=== PATIENT | male | born 1940 | race Caucasian/White ===

== ENCOUNTER 2021-11-02 16:51 | Inpatient (IN) ==
[2021-11-02] MEDS ORDERED: Ondansetron 4 MG/2 ML VIAL IVP PRN (21:09)
[2021-11-02] MEDS ORDERED: Naloxone 0.4 MG/ML INJ IVP PRN (21:09)
[2021-11-02] MEDS ORDERED: Melatonin 3 MG TABLET PO PRN (21:09)
[2021-11-02] MEDS ORDERED: Acetaminophen 325 MG TABLET PO PRN (21:09)
[2021-11-02] MEDS ORDERED: *HR* LORazepam 2 MG/ML VIAL IVP PRN (21:37)
[2021-11-02] MEDS ORDERED: methylPREDNISolone 125 MG/2 ML VIAL IVP ONE (21:53)
[2021-11-02] MEDS: *HR* LORazepam 2 MG/ML VIAL IVP PRN (21:55)
[2021-11-02] MEDS ORDERED: Saline Nasal Spray 44 ML BOTTLE NS PRN (21:58)
[2021-11-02] MEDS ORDERED: Saliva Stimulant 44.3ml BOTTLE PO PRN (21:58)
[2021-11-02] MEDS: Ipratropium/Albuterol Neb 3 ML IH SCH (22:53)
[2021-11-02] MEDS: Budesonide/Formoterol 160/4.5 1 PUFF INH IH SCH (22:56)
[2021-11-02] MEDS: Acetylcysteine 10% 2 ML INHSOL IH SCH (22:56)
[2021-11-02] MEDS: Piperacillin/Tazobactam 3.375 GM in 0.9 % Sodium Chloride Mini Bag 100 ML IVPB SCH (23:49)
[2021-11-02 23:55] LABS: Adenovirus Not Detected (Not Detect); Bordetella Pertussis Not Detected (Not Detect); Chlamydophila pneumoniae Not Detected (Not Detect); Coronavirus 229E Not Detected (Not Detect); Coronavirus HKU1 Not Detected (Not Detect); Coronavirus NL63 Not Detected (Not Detect); Coronavirus OC43 Not Detected (Not Detect); Human Metapneumovirus Not Detected (Not Detect); Human Rhinovirus/Enterovirus Not Detected (Not Detect); Influenza A Subtype 2009 H1 Not Detected (Not Detect); Influenza B Not Detected (Not Detect); Mycoplasma pneumoniae Not Detected (Not Detect); Parainfluenza Virus 1 Not Detected (Not Detect); Parainfluenza Virus 2 Not Detected (Not Detect); Parainfluenza Virus 3 Not Detected (Not Detect); Parainfluenza Virus 4 Not Detected (Not Detect); Respiratory Syncytial Virus Not Detected (Not Detect); SARS-CoV-2 Not Detected (Not Detect)
[2021-11-03] MEDS ORDERED: Vancomycin 1,500 MG/265 ML IV.SOLN IVPB SCH (02:00)
[2021-11-03 02:09] LABS: Basophils % 0.2 %; Eosinophils # 0.1 K/mcL (0.0-0.6); Eosinophils % 0.4 %; Hemoglobin 12.4 g/dL (12.9-16.9); Immature Granulocytes % 0.7 % (0-4); Lymphocytes # 0.2 K/mcL (0.6-4.6); Lymphocytes % 1.8 %; Mean Corpuscular HGB Conc 32.6 g/dL (31.6-35.5); Mean Corpuscular Hemoglobin 30.2 pg (28.0-33.3); Mean Corpuscular Volume 92.7 fL (83.0-100.0); Mean Platelet Volume 9.7 fL (9.4-12.4); Monocytes # 0.2 K/mcL (0.0-1.3); Monocytes % 1.7 %; Neutrophils # 10.9 K/mcL (1.6-8.9); Platelet Count 180 K/mcL (140-400); Red Cell Distribution Width 13.2 % (11.5-14.5); Segmented Neutrophils % 95.2 %; White Blood Count 11.4 K/mcL (4.3-11.1)
[2021-11-03] MEDS: *HR* LORazepam 2 MG/ML VIAL IVP PRN ×3 (02:14→17:27)
[2021-11-03 02:17] LABS: INR 1.2; Prothrombin Time 13.4 Seconds (9.4-12.1)
[2021-11-03 02:19] LABS: Activated Partial Thrombo Time 37.8 Seconds (26.0-36.0)
[2021-11-03 02:24] LABS: Alanine Aminotransferase 14 Units/L (7-52); Albumin 4.1 g/dL (3.5-5.7); Albumin/Globulin Ratio 1.5 (1.1-2.2); Alkaline Phosphatase 36 Units/L (34-104); Aspartate Amino Transferase 28 Units/L (13-39); BUN/Creatinine Ratio 26 (6-26); Bilirubin,Total 0.5 mg/dL (0.3-1.0); Blood Urea Nitrogen 25 mg/dL (8-23); Calcium 9.4 mg/dL (8.6-10.3); Carbon Dioxide 27 mEq/L (23-29); Chloride 103 mEq/L (98-107); Globulin 2.7 g/dL (2.4-3.5); Glucose 128 mg/dL (70-105); Osmolality,Calculated 290 (280-300); Phosphorous 3.2 mg/dL (2.7-4.5); Potassium 4.1 mEq/L (3.5-5.1); Sodium 137 mEq/L (136-145); Total Protein 6.8 g/dL (6.4-8.9); eGFR For African Americans > 60 (> 60); eGFR For Non-African Americans > 60 (> 60)
[2021-11-03] MEDS: Acetylcysteine 10% 2 ML INHSOL IH SCH ×2 (04:02→08:14)
[2021-11-03] MEDS: Ipratropium/Albuterol Neb 3 ML IH SCH ×6 (04:02→23:08)
[2021-11-03 04:17] LABS: ABG Base Excess 1 mEq/L (-2 to 3); ABG HCO3 26 mEq/L (21-27); ABG Oxygen Saturation 98 % (95-98); ABG PCO2 40 mmHg (35-45); ABG PH 7.42 pH Units (7.32-7.45); ABG PO2 106 mmHg (85-104); ABG TCO2 27 mEq/L (20-26)
[2021-11-03] MEDS ORDERED: *HR* Dextrose 50 % in Water (Syg) 50 ML SYRINGE IVP PRN (05:04)
[2021-11-03] MEDS ORDERED: Dextrose Gel 15 GM/37.5 ML TUBE PO PRN ×2 (05:04)
[2021-11-03] MEDS ORDERED: D5% in Water 1,000 ML IVC PRN (05:04)
[2021-11-03] MEDS: MethylPREDNISolone 40 MG/ML VIAL IVP SCH ×2 (05:16→10:50)
[2021-11-03] MEDS ORDERED: Piperacillin/Tazobactam 3.375 GM in 0.9 % Sodium Chloride Mini Bag 100 ML IVPB ONE (08:05)
[2021-11-03] MEDS: Budesonide/Formoterol 160/4.5 1 PUFF INH IH SCH ×2 (08:14→20:20)
[2021-11-03] MEDS: Vitamin B Complex/Vit C/Vit E 1 EACH TABLET PO SCH (08:25)
[2021-11-03] MEDS: Fenofibrate 54 MG TABLET PO SCH (08:26)
[2021-11-03] MEDS: Thiamine (B-1) 100 MG TABLET PO SCH (08:27)
[2021-11-03] MEDS: Folic Acid 1 MG TABLET PO SCH (08:28)
[2021-11-03] MEDS ORDERED: Artificial Tears SOLN 15 ML BOTTLE BOTH EYES SCH (09:00)
[2021-11-03] MEDS ORDERED: Chlorhexidine Rinse 15 ML MOUTHWASH MM SCH (09:00)
[2021-11-03] MEDS ORDERED: Lactobacillus 1 EACH CAP.SPRINK PO SCH (09:00)
[2021-11-03] MEDS: predniSONE 20 MG TABLET PO SCH (13:22)
[2021-11-03] MEDS: Piperacillin/Tazobactam 3.375 GM in 0.9 % Sodium Chloride Mini Bag 100 ML IVPB SCH ×2 (15:51→23:42)
[2021-11-03] MEDS: *HR* HYDROcodone/Acet 5/325 mg TABLET PO PRN (20:19)
[2021-11-04] MEDS: Ipratropium/Albuterol Neb 3 ML IH SCH ×4 (03:53→11:13)
[2021-11-04] MEDS: Budesonide/Formoterol 160/4.5 1 PUFF INH IH SCH ×2 (07:45→22:59)
[2021-11-04 08:30] LABS: Basophils % 0.2 %; Eosinophils % 0.3 %; Hematocrit 37.6 % (37.5-50.1); Hemoglobin 12.3 g/dL (12.9-16.9); Immature Granulocytes % 0.6 % (0-4); Lymphocytes # 0.5 K/mcL (0.6-4.6); Mean Corpuscular HGB Conc 32.7 g/dL (31.6-35.5); Mean Corpuscular Hemoglobin 30.2 pg (28.0-33.3); Mean Corpuscular Volume 92.4 fL (83.0-100.0); Mean Platelet Volume 9.7 fL (9.4-12.4); Monocytes # 0.9 K/mcL (0.0-1.3); Monocytes % 6.7 %; Neutrophils # 11.2 K/mcL (1.6-8.9); Platelet Count 202 K/mcL (140-400); Red Blood Count 4.07 M/mcL (4.19-5.50); Segmented Neutrophils % 88.2 %; White Blood Count 12.7 K/mcL (4.3-11.1)
[2021-11-04 08:47] LABS: BUN/Creatinine Ratio 28 (6-26); Blood Urea Nitrogen 29 mg/dL (8-23); Carbon Dioxide 27 mEq/L (23-29); Chloride 104 mEq/L (98-107); Glucose 119 mg/dL (70-105); Osmolality,Calculated 289 (280-300); Potassium 4.2 mEq/L (3.5-5.1); Sodium 136 mEq/L (136-145); eGFR For African Americans > 60 (> 60); eGFR For Non-African Americans > 60 (> 60)
[2021-11-04] MEDS ORDERED: Lidocaine/EPI 1:100k 1% 50 ML VIAL INFILT ONE (08:47)
[2021-11-04] MEDS: *HR* HYDROcodone/Acet 5/325 mg TABLET PO PRN ×2 (08:54→17:53)
[2021-11-04] MEDS: Fenofibrate 54 MG TABLET PO SCH (08:59)
[2021-11-04] MEDS: Thiamine (B-1) 100 MG TABLET PO SCH (08:59)
[2021-11-04] MEDS: predniSONE 20 MG TABLET PO SCH (08:59)
[2021-11-04] MEDS: *HR* LORazepam 2 MG/ML VIAL IVP PRN ×4 (08:59→21:52)
[2021-11-04] MEDS: Vitamin B Complex/Vit C/Vit E 1 EACH TABLET PO SCH (08:59)
[2021-11-04] MEDS: Folic Acid 1 MG TABLET PO SCH (08:59)
[2021-11-04] MEDS: Piperacillin/Tazobactam 3.375 GM in 0.9 % Sodium Chloride Mini Bag 100 ML IVPB SCH ×2 (09:00→11:14)
[2021-11-04] MEDS ORDERED: Lidocaine/EPI 1:100k 1% 20 ML VIAL INFILT ONE (09:15)
[2021-11-04] MEDS: Ipratropium/Albuterol Neb 3 ML IH PRN (16:48)
[2021-11-04] MEDS ORDERED: *HR* LORazepam 2 MG/ML VIAL IVP ONE (16:50)
[2021-11-04] MEDS ORDERED: Ipratropium/Albuterol Neb 3 ML IH ONE (17:10)
[2021-11-04] MEDS ORDERED: cloNIDine HCL 0.1 MG TABLET PO ONE (17:32)
[2021-11-05 06:28] LABS: VBG HCO3 28 mEq/L (21-27); VBG PCO2 41 mmHg (41-51); VBG PH 7.45 pH Units (7.32-7.42); VBG PO2 76 mmHg (25-50)
[2021-11-05 06:38] LABS: Basophils % 0.2 %; Hematocrit 38.9 % (37.5-50.1); Hemoglobin 12.5 g/dL (12.9-16.9); Immature Granulocytes % 0.8 % (0-4); Lymphocytes # 0.8 K/mcL (0.6-4.6); Lymphocytes % 9.2 %; Mean Corpuscular HGB Conc 32.1 g/dL (31.6-35.5); Mean Corpuscular Hemoglobin 30.1 pg (28.0-33.3); Mean Corpuscular Volume 93.7 fL (83.0-100.0); Mean Platelet Volume 9.5 fL (9.4-12.4); Monocytes # 0.8 K/mcL (0.0-1.3); Monocytes % 9.5 %; Neutrophils # 6.8 K/mcL (1.6-8.9); Platelet Count 177 K/mcL (140-400); Red Blood Count 4.15 M/mcL (4.19-5.50); Red Cell Distribution Width 13.1 % (11.5-14.5); Segmented Neutrophils % 80.3 %; White Blood Count 8.5 K/mcL (4.3-11.1)
[2021-11-05 06:57] LABS: BUN/Creatinine Ratio 28 (6-26); Blood Urea Nitrogen 25 mg/dL (8-23); Calcium 8.9 mg/dL (8.6-10.3); Carbon Dioxide 29 mEq/L (23-29); Chloride 104 mEq/L (98-107); Glucose 101 mg/dL (70-105); Magnesium 2.3 mg/dL (1.6-2.6); Osmolality,Calculated 289 (280-300); Phosphorous 2.6 mg/dL (2.7-4.5); Sodium 137 mEq/L (136-145); eGFR For African Americans > 60 (> 60); eGFR For Non-African Americans > 60 (> 60)
[2021-11-05] MEDS: Budesonide/Formoterol 160/4.5 1 PUFF INH IH SCH ×2 (07:50→19:58)
[2021-11-05] MEDS: Vitamin B Complex/Vit C/Vit E 1 EACH TABLET PO SCH (11:53)
[2021-11-05] MEDS: Folic Acid 1 MG TABLET PO SCH (11:54)
[2021-11-05] MEDS: Thiamine (B-1) 100 MG TABLET PO SCH (11:54)
[2021-11-05] MEDS ORDERED: risperiDONE 0.25 MG TABLET PO SCH (12:00)
[2021-11-05] MEDS: predniSONE 20 MG TABLET PO SCH (12:14)
[2021-11-05] MEDS: *HR* HYDROcodone/Acet 5/325 mg TABLET PO PRN (12:14)
[2021-11-05] MEDS: Fenofibrate 54 MG TABLET PO SCH (12:16)
[2021-11-05] MEDS: Ipratropium/Albuterol Neb 3 ML IH PRN (14:01)
[2021-11-05] MEDS: Sennosides 8.6 MG TABLET PO SCH (19:59)
[2021-11-05] MEDS: risperiDONE 0.25 MG TABLET PO SCH (19:59)
[2021-11-06 05:02] LABS: Basophils % 0.1 %; Eosinophils % 0.3 %; Hematocrit 39.9 % (37.5-50.1); Hemoglobin 12.9 g/dL (12.9-16.9); Immature Granulocytes % 1.1 % (0-4); Lymphocytes # 0.3 K/mcL (0.6-4.6); Lymphocytes % 4.7 %; Mean Corpuscular HGB Conc 32.3 g/dL (31.6-35.5); Mean Corpuscular Hemoglobin 30.2 pg (28.0-33.3); Mean Corpuscular Volume 93.4 fL (83.0-100.0); Mean Platelet Volume 9.4 fL (9.4-12.4); Monocytes # 0.4 K/mcL (0.0-1.3); Monocytes % 5.9 %; Neutrophils # 6.4 K/mcL (1.6-8.9); Platelet Count 196 K/mcL (140-400); Red Blood Count 4.27 M/mcL (4.19-5.50); Red Cell Distribution Width 13.2 % (11.5-14.5); Segmented Neutrophils % 87.9 %; White Blood Count 7.2 K/mcL (4.3-11.1)
[2021-11-06 05:24] LABS: BUN/Creatinine Ratio 27 (6-26); Blood Urea Nitrogen 26 mg/dL (8-23); Calcium 9.3 mg/dL (8.6-10.3); Carbon Dioxide 28 mEq/L (23-29); Chloride 103 mEq/L (98-107); Glucose 129 mg/dL (70-105); Osmolality,Calculated 290 (280-300); Potassium 4.8 mEq/L (3.5-5.1); Sodium 137 mEq/L (136-145); eGFR For African Americans > 60 (> 60); eGFR For Non-African Americans > 60 (> 60)
[2021-11-06] MEDS: Budesonide/Formoterol 160/4.5 1 PUFF INH IH SCH (07:52)
[2021-11-06 07:56] LABS: Mycoplasma pneumoniae IgG 0.35 U/L (<=0.09)
[2021-11-06] MEDS: Sennosides 8.6 MG TABLET PO SCH (09:07)
[2021-11-06] MEDS: Vitamin B Complex/Vit C/Vit E 1 EACH TABLET PO SCH (09:07)
[2021-11-06] MEDS: Folic Acid 1 MG TABLET PO SCH (09:07)
[2021-11-06] MEDS: predniSONE 20 MG TABLET PO SCH (09:08)
[2021-11-06] MEDS: Fenofibrate 54 MG TABLET PO SCH (09:08)
[2021-11-06] MEDS: Thiamine (B-1) 100 MG TABLET PO SCH (09:08)
[2021-11-06] MEDS: risperiDONE 0.25 MG TABLET PO SCH (09:11)
[2021-11-06 09:16] LABS: Adenovirus Not Detected (Not Detect); Bordetella Pertussis Not Detected (Not Detect); Chlamydophila pneumoniae Not Detected (Not Detect); Coronavirus 229E Not Detected (Not Detect); Coronavirus HKU1 Not Detected (Not Detect); Coronavirus NL63 Not Detected (Not Detect); Coronavirus OC43 Not Detected (Not Detect); Human Metapneumovirus Not Detected (Not Detect); Human Rhinovirus/Enterovirus Not Detected (Not Detect); Influenza A Subtype 2009 H1 Not Detected (Not Detect); Influenza B Not Detected (Not Detect); Mycoplasma pneumoniae Not Detected (Not Detect); Parainfluenza Virus 1 Not Detected (Not Detect); Parainfluenza Virus 2 Not Detected (Not Detect); Parainfluenza Virus 3 Not Detected (Not Detect); Parainfluenza Virus 4 Not Detected (Not Detect); Respiratory Syncytial Virus Not Detected (Not Detect); SARS-CoV-2 Not Detected (Not Detect)
[2021-11-06 11:03] VITALS: BP 156/71; PULSE 54; TEMP 97.7; O2SAT 100
[2021-11-06] MEDS: Ipratropium/Albuterol Neb 3 ML IH PRN (13:35)
== END 2021-11-06 14:30 | disposition other institution (70) | DRG 199 ==
LOC: 2NENU → SUATTDRO 20:08
PROVIDERS: ADMIT Internal Medicine; ATTEND Internal Medicine

== ENCOUNTER 2021-12-07 15:09 | Inpatient (IN) ==
[2021-12-07 17:01] LABS: Hematocrit 38.6 % (37.5-50.1); Hemoglobin 12.3 g/dL (12.9-16.9); Mean Corpuscular HGB Conc 31.9 g/dL (31.6-35.5); Mean Corpuscular Hemoglobin 29.9 pg (28.0-33.3); Mean Corpuscular Volume 93.9 fL (83.0-100.0); Mean Platelet Volume 9.8 fL (9.4-12.4); Platelet Count 218 K/mcL (140-400); Red Blood Count 4.11 M/mcL (4.19-5.50); White Blood Count 7.9 K/mcL (4.3-11.1)
[2021-12-07 17:18] LABS: Potassium 4.2 mEq/L (3.5-5.1)
[2021-12-07] MEDS ORDERED: Ondansetron 4 MG/2 ML VIAL ONE (17:28)
[2021-12-07] MEDS ORDERED: *HR* FentaNYL (PF) 100 MCG/2 ML VIAL ONE (17:29)
[2021-12-07] MEDS ORDERED: *HR* FentaNYL (PF) 100 MCG/2 ML VIAL IVP ONE (17:31)
[2021-12-07] MEDS ORDERED: Ondansetron 4 MG/2 ML VIAL IVP ONE (17:33)
[2021-12-07] MEDS ORDERED: Acetaminophen 325 MG TABLET PO PRN (18:24)
[2021-12-07] MEDS ORDERED: Ondansetron 4 MG/2 ML VIAL IVP PRN (18:24)
[2021-12-07] MEDS ORDERED: Naloxone 0.4 MG/ML INJ IVP PRN (18:24)
[2021-12-07] MEDS ORDERED: *HR* LORazepam 1 MG TABLET PO PRN ×3 (19:05)
[2021-12-07 21:59] LABS: Bilirubin,Urine Negative (Negative); Blood,Urine Negative (Negative); Clarity,Urine Clear (Clear); Color,Urine Colorless (Yellow); Glucose,Urine (UA) Normal (Normal); Ketones,Urine Negative (Negative); Leukocyte Esterase,Urine Negative (Negative); Nitrite,Urine Negative (Negative); Protein,Urine Negative (Neg-Trace); Specific Gravity,Urine 1.016 (1.010-1.025); Urobilinogen,Urine Normal (Normal)
[2021-12-07] MEDS: Ketorolac 30 MG/ML VIAL IVP PRN (23:34)
[2021-12-08] MEDS ORDERED: Ketorolac 30 MG/ML VIAL IVP PRN
[2021-12-08 05:26] LABS: Hematocrit 36.2 % (37.5-50.1); Hemoglobin 11.7 g/dL (12.9-16.9); Mean Corpuscular HGB Conc 32.3 g/dL (31.6-35.5); Mean Corpuscular Hemoglobin 30.2 pg (28.0-33.3); Mean Corpuscular Volume 93.3 fL (83.0-100.0); Mean Platelet Volume 9.5 fL (9.4-12.4); Platelet Count 219 K/mcL (140-400); Red Blood Count 3.88 M/mcL (4.19-5.50); Red Cell Distribution Width 13.8 % (11.5-14.5); White Blood Count 8.2 K/mcL (4.3-11.1)
[2021-12-08 05:46] LABS: BUN/Creatinine Ratio 26 (6-26); Blood Urea Nitrogen 29 mg/dL (8-23); Calcium 9.6 mg/dL (8.6-10.3); Carbon Dioxide 24 mEq/L (23-29); Chloride 105 mEq/L (98-107); Glucose 121 mg/dL (70-105); Osmolality,Calculated 289 (280-300); Potassium 4.6 mEq/L (3.5-5.1); Sodium 136 mEq/L (136-145); Troponin I < 0.03 ng/mL (< 0.04)
[2021-12-08] MEDS: Thiamine (B-1) 100 MG TABLET PO SCH (08:13)
[2021-12-08] MEDS: Vitamin B Complex/Vit C/Vit E 1 EACH TABLET PO SCH (08:14)
[2021-12-08] MEDS: Folic Acid 1 MG TABLET PO SCH (08:14)
[2021-12-08] MEDS: Ketorolac 30 MG/ML VIAL IVP PRN (11:22)
[2021-12-08] MEDS ORDERED: *HR* Dextrose 50 % in Water (Syg) 50 ML SYRINGE IVP PRN (14:25)
[2021-12-08] MEDS ORDERED: D5% in Water 1,000 ML IVC PRN (14:25)
[2021-12-08] MEDS ORDERED: Dextrose Gel 15 GM/37.5 ML TUBE PO PRN ×2 (14:25)
[2021-12-08] MEDS: Insulin LISPRO 300 UNITS/3 ML VIAL SUBQ SCH (20:37)
[2021-12-08] MEDS: risperiDONE 0.25 MG TABLET PO SCH (20:50)
[2021-12-09] MEDS: Insulin LISPRO 300 UNITS/3 ML VIAL SUBQ SCH ×5 (00:48→23:11)
[2021-12-09] MEDS ORDERED: Regadenoson 0.4 MG/5 ML SYRINGE IVP ONE (06:11)
[2021-12-09] MEDS: Folic Acid 1 MG TABLET PO SCH (11:11)
[2021-12-09] MEDS: Vitamin B Complex/Vit C/Vit E 1 EACH TABLET PO SCH (11:11)
[2021-12-09] MEDS: Thiamine (B-1) 100 MG TABLET PO SCH (11:11)
[2021-12-09] MEDS: Fenofibrate 54 MG TABLET PO SCH (11:12)
[2021-12-09] MEDS: risperiDONE 0.25 MG TABLET PO SCH (20:16)
[2021-12-09] MEDS: Melatonin 3 MG TABLET PO PRN (23:11)
[2021-12-10 04:08] LABS: INR 1.1; Prothrombin Time 12.1 Seconds (9.4-12.1)
[2021-12-10] MEDS: Insulin LISPRO 300 UNITS/3 ML VIAL SUBQ SCH (05:26)
[2021-12-10] MEDS: Fenofibrate 54 MG TABLET PO SCH (08:36)
[2021-12-10] MEDS: Folic Acid 1 MG TABLET PO SCH (08:37)
[2021-12-10] MEDS: Vitamin B Complex/Vit C/Vit E 1 EACH TABLET PO SCH (08:37)
[2021-12-10] MEDS: Thiamine (B-1) 100 MG TABLET PO SCH (08:37)
[2021-12-10 09:38] LABS: Basophils # 0.1 K/mcL (0.0-0.2); Basophils % 0.8 %; Eosinophils # 0.3 K/mcL (0.0-0.6); Eosinophils % 5.1 %; Hematocrit 37.3 % (37.5-50.1); Hemoglobin 12.2 g/dL (12.9-16.9); Immature Granulocytes % 0.8 % (0-4); Lymphocytes # 0.8 K/mcL (0.6-4.6); Lymphocytes % 11.8 %; Mean Corpuscular HGB Conc 32.7 g/dL (31.6-35.5); Mean Corpuscular Hemoglobin 30.7 pg (28.0-33.3); Mean Corpuscular Volume 93.7 fL (83.0-100.0); Mean Platelet Volume 9.8 fL (9.4-12.4); Monocytes # 0.6 K/mcL (0.0-1.3); Neutrophils # 4.7 K/mcL (1.6-8.9); Platelet Count 186 K/mcL (140-400); Red Blood Count 3.98 M/mcL (4.19-5.50); Red Cell Distribution Width 13.8 % (11.5-14.5); Segmented Neutrophils % 72.5 %; White Blood Count 6.4 K/mcL (4.3-11.1)
[2021-12-10 09:54] LABS: Calcium 9.2 mg/dL (8.6-10.3); Potassium 3.6 mEq/L (3.5-5.1)
[2021-12-10] MEDS ORDERED: Insulin LISPRO 300 UNITS/3 ML VIAL SUBQ SCH ×2 (11:30→21:00)
[2021-12-10] MEDS: risperiDONE 0.25 MG TABLET PO SCH (20:09)
[2021-12-11] MEDS: Folic Acid 1 MG TABLET PO SCH (08:01)
[2021-12-11] MEDS: Fenofibrate 54 MG TABLET PO SCH (08:01)
[2021-12-11] MEDS: Thiamine (B-1) 100 MG TABLET PO SCH (08:01)
[2021-12-11] MEDS: Vitamin B Complex/Vit C/Vit E 1 EACH TABLET PO SCH (08:01)
[2021-12-11] MEDS ORDERED: polyethylene glycoL 3350 17 GM POWD.PACK PO ONE ×2 (08:06→18:17)
[2021-12-11] MEDS ORDERED: Milk and Molasses Enema 200 ML RC ONE (16:00)
[2021-12-11] MEDS: Melatonin 3 MG TABLET PO PRN (20:39)
[2021-12-11] MEDS: risperiDONE 0.25 MG TABLET PO SCH (20:39)
[2021-12-12 01:51] LABS: Basophils # 0.1 K/mcL (0.0-0.2); Basophils % 0.7 %; Eosinophils # 0.3 K/mcL (0.0-0.6); Eosinophils % 4.1 %; Hematocrit 34.7 % (37.5-50.1); Hemoglobin 11.4 g/dL (12.9-16.9); Immature Granulocytes % 1.1 % (0-4); Lymphocytes % 14.7 %; Mean Corpuscular HGB Conc 32.9 g/dL (31.6-35.5); Mean Corpuscular Hemoglobin 30.6 pg (28.0-33.3); Mean Corpuscular Volume 93.3 fL (83.0-100.0); Mean Platelet Volume 9.8 fL (9.4-12.4); Monocytes # 0.8 K/mcL (0.0-1.3); Monocytes % 11.4 %; Neutrophils # 4.8 K/mcL (1.6-8.9); Platelet Count 192 K/mcL (140-400); Red Blood Count 3.72 M/mcL (4.19-5.50); Red Cell Distribution Width 13.5 % (11.5-14.5)
[2021-12-12 02:10] LABS: Calcium 9.2 mg/dL (8.6-10.3)
[2021-12-12] MEDS ORDERED: polyethylene glycoL 3350 17 GM POWD.PACK PO PRN (07:00)
[2021-12-12] MEDS: Folic Acid 1 MG TABLET PO SCH (07:28)
[2021-12-12] MEDS: Fenofibrate 54 MG TABLET PO SCH (07:28)
[2021-12-12] MEDS: Vitamin B Complex/Vit C/Vit E 1 EACH TABLET PO SCH (07:28)
[2021-12-12] MEDS: Thiamine (B-1) 100 MG TABLET PO SCH (07:28)
[2021-12-12] MEDS: *HR* Heparin 5,000 UNIT/ML VIAL SQ SCH (17:12)
[2021-12-12] MEDS: risperiDONE 0.25 MG TABLET PO SCH (20:16)
[2021-12-12] MEDS: Melatonin 3 MG TABLET PO PRN (20:16)
[2021-12-13] MEDS: *HR* Heparin 5,000 UNIT/ML VIAL SQ SCH ×2 (04:41→16:55)
[2021-12-13] MEDS: Folic Acid 1 MG TABLET PO SCH (08:46)
[2021-12-13] MEDS: Thiamine (B-1) 100 MG TABLET PO SCH (08:46)
[2021-12-13] MEDS: Fenofibrate 54 MG TABLET PO SCH (08:46)
[2021-12-13] MEDS: Vitamin B Complex/Vit C/Vit E 1 EACH TABLET PO SCH (08:46)
[2021-12-13] MEDS ORDERED: Acetaminophen 325 MG TABLET PO PRN (14:13)
[2021-12-13] MEDS: Melatonin 3 MG TABLET PO PRN (21:08)
[2021-12-13] MEDS: risperiDONE 0.25 MG TABLET PO SCH (21:08)
[2021-12-14] MEDS: *HR* Heparin 5,000 UNIT/ML VIAL SQ SCH ×2 (05:17→17:16)
[2021-12-14] MEDS: Vitamin B Complex/Vit C/Vit E 1 EACH TABLET PO SCH (08:13)
[2021-12-14] MEDS: Folic Acid 1 MG TABLET PO SCH (08:13)
[2021-12-14] MEDS: Aspirin Enteric Coated 81 MG Tablet PO SCH (08:13)
[2021-12-14] MEDS: Fenofibrate 54 MG TABLET PO SCH (08:13)
[2021-12-14] MEDS: Thiamine (B-1) 100 MG TABLET PO SCH (08:13)
[2021-12-14] MEDS: risperiDONE 0.25 MG TABLET PO SCH (20:51)
[2021-12-15] MEDS: CLEAR EYES NATURAL TEARS 15 ML BOTTLE BOTH EYES PRN ×2 (00:05→09:06)
[2021-12-15] MEDS: *HR* Heparin 5,000 UNIT/ML VIAL SQ SCH ×2 (05:43→17:29)
[2021-12-15] MEDS: Aspirin Enteric Coated 81 MG Tablet PO SCH (08:13)
[2021-12-15] MEDS: Vitamin B Complex/Vit C/Vit E 1 EACH TABLET PO SCH (08:13)
[2021-12-15] MEDS: Thiamine (B-1) 100 MG TABLET PO SCH (08:13)
[2021-12-15] MEDS: Folic Acid 1 MG TABLET PO SCH (08:13)
[2021-12-15] MEDS: Fenofibrate 54 MG TABLET PO SCH (08:13)
[2021-12-15 15:36] VITALS: O2SAT 97
[2021-12-15 18:43] VITALS: BP 154/87; PULSE 68; TEMP 98.1
[2021-12-15] MEDS: risperiDONE 0.25 MG TABLET PO SCH (21:43)
[2021-12-15 23:14] LABS: Adenovirus Not Detected (Not Detect); Bordetella Pertussis Not Detected (Not Detect); Chlamydophila pneumoniae Not Detected (Not Detect); Coronavirus 229E Not Detected (Not Detect); Coronavirus HKU1 Not Detected (Not Detect); Coronavirus NL63 Not Detected (Not Detect); Coronavirus OC43 Not Detected (Not Detect); Human Metapneumovirus Not Detected (Not Detect); Human Rhinovirus/Enterovirus Not Detected (Not Detect); Influenza A Subtype 2009 H1 Not Detected (Not Detect); Influenza B Not Detected (Not Detect); Mycoplasma pneumoniae Not Detected (Not Detect); Parainfluenza Virus 1 Not Detected (Not Detect); Parainfluenza Virus 2 Not Detected (Not Detect); Parainfluenza Virus 3 Not Detected (Not Detect); Parainfluenza Virus 4 Not Detected (Not Detect); Respiratory Syncytial Virus Not Detected (Not Detect); SARS-CoV-2 Not Detected (Not Detect)
== END 2021-12-15 23:05 | disposition other institution (70) | DRG 200 ==
LOC: EMEROOARM 15:09 → 2NENU 15:09 → SUATTDRO 19:02 → 2NENU 20:30 → SUATTDRO 12-08 12:37
PROVIDERS: ADMIT Internal Medicine; ATTEND Internal Medicine

== ENCOUNTER 2022-01-10 14:12 | Inpatient (IN) ==
[2022-01-10] MEDS ORDERED: Naloxone 0.4 MG/ML INJ IVP PRN (19:58)
[2022-01-10] MEDS ORDERED: Melatonin 3 MG TABLET PO PRN (19:58)
[2022-01-10] MEDS ORDERED: Ondansetron ODT 4 MG TAB.RAPDIS SL PRN (19:58)
[2022-01-10] MEDS ORDERED: *HR* LORazepam 1 MG TABLET PO PRN ×3 (19:58)
[2022-01-10] MEDS: risperiDONE 0.25 MG TABLET PO SCH (21:23)
[2022-01-10] MEDS: Albuterol 2.5 MG/3 ML NEBULIZER IH SCH (21:27)
[2022-01-11] MEDS ORDERED: Albuterol 2.5 MG/3 ML NEBULIZER IH PRN (04:09)
[2022-01-11] MEDS: Albuterol 2.5 MG/3 ML NEBULIZER IH SCH (04:46)
[2022-01-11 06:50] LABS: Basophils % 0.6 %; Eosinophils # 0.3 K/mcL (0.0-0.6); Eosinophils % 3.7 %; Hematocrit 36.7 % (37.5-50.1); Hemoglobin 11.8 g/dL (12.9-16.9); Immature Granulocytes % 0.9 % (0-4); Lymphocytes # 0.7 K/mcL (0.6-4.6); Lymphocytes % 10.7 %; Mean Corpuscular HGB Conc 32.2 g/dL (31.6-35.5); Mean Corpuscular Hemoglobin 29.9 pg (28.0-33.3); Mean Corpuscular Volume 93.1 fL (83.0-100.0); Mean Platelet Volume 9.5 fL (9.4-12.4); Monocytes # 0.6 K/mcL (0.0-1.3); Monocytes % 8.4 %; Neutrophils # 5.2 K/mcL (1.6-8.9); Platelet Count 181 K/mcL (140-400); Red Blood Count 3.94 M/mcL (4.19-5.50); Red Cell Distribution Width 13.7 % (11.5-14.5); Segmented Neutrophils % 75.7 %; White Blood Count 6.8 K/mcL (4.3-11.1)
[2022-01-11 06:56] LABS: INR 1.1; Prothrombin Time 12.5 Seconds (9.4-12.1)
[2022-01-11 06:59] LABS: Activated Partial Thrombo Time 37.6 Seconds (26.0-36.0)
[2022-01-11 07:08] LABS: Albumin 3.9 g/dL (3.5-5.7); Albumin/Globulin Ratio 1.6 (1.1-2.2); Bilirubin,Total 0.3 mg/dL (0.3-1.0); Calcium 9.5 mg/dL (8.6-10.3); Chol/HDL Ratio 3.2 (0-4.9); Globulin 2.4 g/dL (2.4-3.5); Magnesium 2.1 mg/dL (1.6-2.6); Phosphorous 3.3 mg/dL (2.7-4.5); Potassium 3.8 mEq/L (3.5-5.1); Total Protein 6.3 g/dL (6.4-8.9)
[2022-01-11] MEDS: Tiotropium 10 INH DOSE IH SCH (07:36)
[2022-01-11] MEDS: Thiamine (B-1) 100 MG TABLET PO SCH (08:42)
[2022-01-11] MEDS: Folic Acid 1 MG TABLET PO SCH (08:42)
[2022-01-11] MEDS: Vitamin B Complex/Vit C/Vit E 1 EACH TABLET PO SCH (08:42)
[2022-01-11] MEDS ORDERED: polyethylene glycoL 3350 17 GM POWD.PACK PO PRN (11:31)
[2022-01-11] MEDS: risperiDONE 0.25 MG TABLET PO SCH (19:51)
[2022-01-11] MEDS: Acetaminophen 325 MG TABLET PO PRN (20:16)
[2022-01-12] MEDS: Thiamine (B-1) 100 MG TABLET PO SCH (07:24)
[2022-01-12] MEDS: Folic Acid 1 MG TABLET PO SCH (07:24)
[2022-01-12] MEDS: Vitamin B Complex/Vit C/Vit E 1 EACH TABLET PO SCH (07:24)
[2022-01-12] MEDS: Aspirin Enteric Coated 81 MG Tablet PO SCH (07:24)
[2022-01-12] MEDS: Budesonide/Formoterol 160/4.5 1 PUFF INH IH SCH ×2 (07:59→20:38)
[2022-01-12] MEDS: Tiotropium 10 INH DOSE IH SCH (07:59)
[2022-01-12] MEDS: Acetaminophen 325 MG TABLET PO PRN ×2 (10:43→21:03)
[2022-01-12] MEDS: risperiDONE 0.25 MG TABLET PO SCH (21:02)
[2022-01-13] MEDS: Budesonide/Formoterol 160/4.5 1 PUFF INH IH SCH ×2 (07:36→20:56)
[2022-01-13] MEDS: Tiotropium 10 INH DOSE IH SCH (07:36)
[2022-01-13] MEDS: Folic Acid 1 MG TABLET PO SCH (09:28)
[2022-01-13] MEDS: Vitamin B Complex/Vit C/Vit E 1 EACH TABLET PO SCH (09:28)
[2022-01-13] MEDS: Thiamine (B-1) 100 MG TABLET PO SCH (09:28)
[2022-01-13] MEDS: Aspirin Enteric Coated 81 MG Tablet PO SCH (09:28)
[2022-01-13] MEDS: risperiDONE 0.25 MG TABLET PO SCH (20:18)
[2022-01-14 03:33] LABS: Hematocrit 38.1 % (37.5-50.1); Hemoglobin 12.3 g/dL (12.9-16.9); Mean Corpuscular HGB Conc 32.3 g/dL (31.6-35.5); Mean Corpuscular Hemoglobin 29.9 pg (28.0-33.3); Mean Corpuscular Volume 92.5 fL (83.0-100.0); Mean Platelet Volume 9.7 fL (9.4-12.4); Platelet Count 189 K/mcL (140-400); Red Blood Count 4.12 M/mcL (4.19-5.50); Red Cell Distribution Width 13.4 % (11.5-14.5); White Blood Count 8.5 K/mcL (4.3-11.1)
[2022-01-14 03:48] LABS: Calcium 9.4 mg/dL (8.6-10.3)
[2022-01-14] MEDS: Tiotropium 10 INH DOSE IH SCH (07:39)
[2022-01-14] MEDS: Budesonide/Formoterol 160/4.5 1 PUFF INH IH SCH ×2 (07:40→22:21)
[2022-01-14] MEDS: Folic Acid 1 MG TABLET PO SCH (09:03)
[2022-01-14] MEDS: Aspirin Enteric Coated 81 MG Tablet PO SCH (09:03)
[2022-01-14] MEDS: Vitamin B Complex/Vit C/Vit E 1 EACH TABLET PO SCH (09:03)
[2022-01-14] MEDS: Thiamine (B-1) 100 MG TABLET PO SCH (09:03)
[2022-01-14] MEDS ORDERED: *HR* Propofol 200 MG/20 ML VIAL IVP ONE (09:18)
[2022-01-14] MEDS ORDERED: *HR* Labetalol 20 MG/4 ML SYRINGE IVP PRN (09:38)
[2022-01-14] MEDS ORDERED: Acetaminophen IV 1,000 MG/100 ML BAG IVPB ONE (09:38)
[2022-01-14] MEDS ORDERED: Ondansetron 4 MG/2 ML VIAL IVP PRN (09:38)
[2022-01-14] MEDS ORDERED: *HR* OxyCODONE Immed Rel 5 MG TABLET PO PRN (09:38)
[2022-01-14] MEDS ORDERED: *HR* HYDROmorphone (PF) 1 MG/ML SYRINGE IVP PRN (09:38)
[2022-01-14] MEDS ORDERED: Famotidine 20 MG/2 ML VIAL IVP ONE (09:38)
[2022-01-14] MEDS ORDERED: Promethazine 6.25 MG in Water for inj. (sterile) 20 ML IVPB PRN (09:38)
[2022-01-14] MEDS ORDERED: *HR* FentaNYL (PF) 100 MCG/2 ML VIAL ONE (09:46)
[2022-01-14] MEDS ORDERED: CeFAZolin Syr 2,000MG/20 ML 2,000 MG/20 ML SYRINGE IVPB ONE (10:30)
[2022-01-14] MEDS ORDERED: *HR* Labetalol 20 MG/4 ML SYRINGE IVP ONE (10:57)
[2022-01-14] MEDS ORDERED: *HR* HYDROMORPHONE 2 MG/ML VIAL ONE (11:24)
[2022-01-14] MEDS ORDERED: Lidocaine -MPF 2% 5 ML VIAL ONE (11:24)
[2022-01-14] MEDS ORDERED: Ondansetron 4 MG/2 ML VIAL ONE (11:24)
[2022-01-14] MEDS ORDERED: *HR* Rocuronium Bromide 50 MG/5 ML VIAL ONE (11:28)
[2022-01-14] MEDS ORDERED: EPHEDrine sulfate 50 MG/10 ML VIAL IVP ONE (11:37)
[2022-01-14] MEDS ORDERED: Sugammadex Sodium 200 MG/2 ML VIAL IV ONE ×2 (11:58→12:11)
[2022-01-14] MEDS: *HR* FentaNYL (PF) 100 MCG/2 ML VIAL IVP PRN ×2 (12:34→12:50)
[2022-01-14] MEDS ORDERED: Ondansetron ODT 4 MG TAB.RAPDIS SL PRN (13:21)
[2022-01-14] MEDS ORDERED: polyethylene glycoL 3350 17 GM POWD.PACK PO PRN (13:21)
[2022-01-14] MEDS ORDERED: Naloxone 0.4 MG/ML INJ IVP PRN (13:21)
[2022-01-14] MEDS: Acetaminophen 325 MG TABLET PO PRN ×2 (13:42→20:19)
[2022-01-14] MEDS: *HR* HYDROcodone/Acet 5/325 mg TABLET PO PRN ×2 (17:04→23:05)
[2022-01-14] MEDS: Melatonin 3 MG TABLET PO PRN (20:19)
[2022-01-14] MEDS: Albuterol 2.5 MG/3 ML NEBULIZER IH PRN (22:21)
[2022-01-15] MEDS: *HR* HYDROcodone/Acet 5/325 mg TABLET PO PRN (03:21)
[2022-01-15 03:32] LABS: Basophils % 0.1 %; Hematocrit 36.7 % (37.5-50.1); Hemoglobin 11.9 g/dL (12.9-16.9); Immature Granulocytes % 0.6 % (0-4); Lymphocytes # 0.4 K/mcL (0.6-4.6); Lymphocytes % 2.7 %; Mean Corpuscular HGB Conc 32.4 g/dL (31.6-35.5); Mean Corpuscular Hemoglobin 29.9 pg (28.0-33.3); Mean Corpuscular Volume 92.2 fL (83.0-100.0); Mean Platelet Volume 9.9 fL (9.4-12.4); Monocytes % 6.6 %; Neutrophils # 12.9 K/mcL (1.6-8.9); Platelet Count 187 K/mcL (140-400); Red Blood Count 3.98 M/mcL (4.19-5.50); Red Cell Distribution Width 13.4 % (11.5-14.5)
[2022-01-15 03:38] LABS: Monocytes # 0.9 K/mcL (0.0-1.3); White Blood Count 14.3 K/mcL (4.3-11.1)
[2022-01-15] MEDS: *HR* HYDROmorphone (PF) 1 MG/ML SYRINGE IVP PRN ×4 (03:43→20:26)
[2022-01-15 03:48] LABS: Calcium 9.3 mg/dL (8.6-10.3); Potassium 4.1 mEq/L (3.5-5.1)
[2022-01-15] MEDS: Budesonide/Formoterol 160/4.5 1 PUFF INH IH SCH ×2 (07:52→20:38)
[2022-01-15] MEDS ORDERED: Tiotropium 10 INH DOSE IH ONE (07:52)
[2022-01-15] MEDS: Tiotropium 10 INH DOSE IH SCH (07:54)
[2022-01-15] MEDS: Thiamine (B-1) 100 MG TABLET PO SCH (08:05)
[2022-01-15] MEDS: Aspirin Enteric Coated 81 MG Tablet PO SCH (08:05)
[2022-01-15] MEDS: Folic Acid 1 MG TABLET PO SCH (08:05)
[2022-01-15] MEDS: Vitamin B Complex/Vit C/Vit E 1 EACH TABLET PO SCH (08:06)
[2022-01-15] MEDS: *HR* HYDROcodone/Acet 7.5/325 mg TABLET PO PRN ×2 (11:36→17:35)
[2022-01-15] MEDS: Gabapentin 100 MG CAPSULE PO SCH ×3 (11:36→20:29)
[2022-01-15] MEDS: Sennosides/Docusate Sodium TABLET PO SCH ×2 (11:53→20:27)
[2022-01-16] MEDS: *HR* HYDROmorphone (PF) 1 MG/ML SYRINGE IVP PRN ×3 (02:07→20:10)
[2022-01-16] MEDS: Gabapentin 300 MG CAPSULE PO SCH ×3 (07:40→20:10)
[2022-01-16] MEDS: Aspirin Enteric Coated 81 MG Tablet PO SCH (07:40)
[2022-01-16] MEDS: Sennosides/Docusate Sodium TABLET PO SCH ×2 (07:40→20:10)
[2022-01-16] MEDS: *HR* HYDROcodone/Acet 7.5/325 mg TABLET PO PRN ×2 (07:40→20:10)
[2022-01-16] MEDS: Folic Acid 1 MG TABLET PO SCH (07:41)
[2022-01-16] MEDS: Thiamine (B-1) 100 MG TABLET PO SCH (07:41)
[2022-01-16] MEDS: Vitamin B Complex/Vit C/Vit E 1 EACH TABLET PO SCH (07:41)
[2022-01-16] MEDS: Tiotropium 10 INH DOSE IH SCH (07:46)
[2022-01-16] MEDS: Albuterol 2.5 MG/3 ML NEBULIZER IH PRN (07:46)
[2022-01-16] MEDS: Budesonide/Formoterol 160/4.5 1 PUFF INH IH SCH ×2 (07:47→22:35)
[2022-01-16 11:15] LABS: Hematocrit 38.8 % (37.5-50.1); Hemoglobin 12.5 g/dL (12.9-16.9); Mean Corpuscular HGB Conc 32.2 g/dL (31.6-35.5); Mean Corpuscular Hemoglobin 30.2 pg (28.0-33.3); Mean Corpuscular Volume 93.7 fL (83.0-100.0); Mean Platelet Volume 9.4 fL (9.4-12.4); Platelet Count 196 K/mcL (140-400); Red Blood Count 4.14 M/mcL (4.19-5.50); Red Cell Distribution Width 13.6 % (11.5-14.5); White Blood Count 11.9 K/mcL (4.3-11.1)
[2022-01-16] MEDS: Albuterol 2.5 MG/3 ML NEBULIZER IH SCH ×3 (11:27→22:35)
[2022-01-16 11:36] LABS: Calcium 10.3 mg/dL (8.6-10.3); Potassium 3.9 mEq/L (3.5-5.1)
[2022-01-16] MEDS: Melatonin 3 MG TABLET PO PRN (20:09)
[2022-01-17] MEDS: Albuterol 2.5 MG/3 ML NEBULIZER IH SCH ×5 (04:12→22:48)
[2022-01-17] MEDS: *HR* HYDROmorphone (PF) 1 MG/ML SYRINGE IVP PRN (05:26)
[2022-01-17] MEDS: Folic Acid 1 MG TABLET PO SCH (07:37)
[2022-01-17] MEDS: Gabapentin 300 MG CAPSULE PO SCH (07:37)
[2022-01-17] MEDS: Sennosides/Docusate Sodium TABLET PO SCH ×2 (07:37→20:09)
[2022-01-17] MEDS: Vitamin B Complex/Vit C/Vit E 1 EACH TABLET PO SCH (07:37)
[2022-01-17] MEDS: Thiamine (B-1) 100 MG TABLET PO SCH (07:37)
[2022-01-17] MEDS: Aspirin Enteric Coated 81 MG Tablet PO SCH (07:38)
[2022-01-17] MEDS: Tiotropium 10 INH DOSE IH SCH (10:41)
[2022-01-17] MEDS: Budesonide/Formoterol 160/4.5 1 PUFF INH IH SCH ×2 (10:41→22:48)
[2022-01-17] MEDS: Acetaminophen 325 MG TABLET PO PRN (12:09)
[2022-01-17] MEDS ORDERED: Bisacodyl 10 MG RECTAL SUPPOSITORY RC PRN (14:49)
[2022-01-17] MEDS: Gabapentin 100 MG CAPSULE PO SCH ×2 (15:02→20:09)
[2022-01-17] MEDS: traZODone 50 MG TABLET PO PRN (20:09)
[2022-01-18] MEDS: Albuterol 2.5 MG/3 ML NEBULIZER IH SCH ×4 (04:13→21:53)
[2022-01-18] MEDS: Vitamin B Complex/Vit C/Vit E 1 EACH TABLET PO SCH (07:42)
[2022-01-18] MEDS: Thiamine (B-1) 100 MG TABLET PO SCH (07:42)
[2022-01-18] MEDS: Gabapentin 100 MG CAPSULE PO SCH ×3 (07:43→19:37)
[2022-01-18] MEDS: Aspirin Enteric Coated 81 MG Tablet PO SCH (07:43)
[2022-01-18] MEDS: Sennosides/Docusate Sodium TABLET PO SCH ×2 (07:43→19:37)
[2022-01-18] MEDS: Ketorolac 30 MG/ML VIAL IVP PRN (08:03)
[2022-01-18] MEDS: Tiotropium 10 INH DOSE IH SCH (10:34)
[2022-01-18] MEDS: Budesonide/Formoterol 160/4.5 1 PUFF INH IH SCH ×2 (10:34→21:53)
[2022-01-18] MEDS: Folic Acid 1 MG TABLET PO SCH (11:27)
[2022-01-18 12:28] LABS: Hematocrit 34.7 % (37.5-50.1); Hemoglobin 11.3 g/dL (12.9-16.9); Mean Corpuscular HGB Conc 32.6 g/dL (31.6-35.5); Mean Corpuscular Hemoglobin 30.5 pg (28.0-33.3); Mean Corpuscular Volume 93.5 fL (83.0-100.0); Mean Platelet Volume 9.5 fL (9.4-12.4); Platelet Count 210 K/mcL (140-400); Red Blood Count 3.71 M/mcL (4.19-5.50); Red Cell Distribution Width 13.5 % (11.5-14.5); White Blood Count 10.6 K/mcL (4.3-11.1)
[2022-01-18 12:56] LABS: Calcium 10.1 mg/dL (8.6-10.3); Potassium 3.7 mEq/L (3.5-5.1)
[2022-01-18] MEDS: traZODone 50 MG TABLET PO PRN (19:37)
[2022-01-18] MEDS: risperiDONE 0.25 MG TABLET PO SCH (19:41)
[2022-01-19] MEDS: Ketorolac 30 MG/ML VIAL IVP PRN ×2 (03:06→09:04)
[2022-01-19] MEDS: Albuterol 2.5 MG/3 ML NEBULIZER IH SCH ×4 (04:11→21:30)
[2022-01-19] MEDS ORDERED: Furosemide 20 MG/2 ML VIAL IVP ONE ×2 (07:53→16:18)
[2022-01-19] MEDS: Vitamin B Complex/Vit C/Vit E 1 EACH TABLET PO SCH (08:44)
[2022-01-19] MEDS: Thiamine (B-1) 100 MG TABLET PO SCH (08:45)
[2022-01-19] MEDS: Sennosides/Docusate Sodium TABLET PO SCH ×2 (08:45→21:42)
[2022-01-19] MEDS: Folic Acid 1 MG TABLET PO SCH (08:46)
[2022-01-19] MEDS: Gabapentin 100 MG CAPSULE PO SCH ×3 (08:46→21:41)
[2022-01-19] MEDS: Aspirin Enteric Coated 81 MG Tablet PO SCH (08:46)
[2022-01-19] MEDS: Tiotropium 10 INH DOSE IH SCH (09:19)
[2022-01-19] MEDS: Budesonide/Formoterol 160/4.5 1 PUFF INH IH SCH ×2 (09:19→21:31)
[2022-01-19] MEDS: levoFLOXacin 750 MG TABLET PO SCH (12:03)
[2022-01-19 14:06] LABS: VBG HCO3 28 mEq/L (21-27); VBG PCO2 49 mmHg (41-51); VBG PH 7.37 pH Units (7.32-7.42); VBG PO2 160 mmHg (25-50)
[2022-01-19 14:07] LABS: Basophils % 0.4 %; Eosinophils # 0.6 K/mcL (0.0-0.6); Eosinophils % 6.6 %; Hematocrit 34.7 % (37.5-50.1); Hemoglobin 11.2 g/dL (12.9-16.9); Immature Granulocytes % 0.8 % (0-4); Lymphocytes # 0.6 K/mcL (0.6-4.6); Lymphocytes % 6.7 %; Mean Corpuscular HGB Conc 32.3 g/dL (31.6-35.5); Mean Corpuscular Hemoglobin 30.1 pg (28.0-33.3); Mean Corpuscular Volume 93.3 fL (83.0-100.0); Mean Platelet Volume 9.7 fL (9.4-12.4); Monocytes # 0.6 K/mcL (0.0-1.3); Neutrophils # 7.4 K/mcL (1.6-8.9); Platelet Count 238 K/mcL (140-400); Red Blood Count 3.72 M/mcL (4.19-5.50); Red Cell Distribution Width 13.5 % (11.5-14.5); Segmented Neutrophils % 79.5 %; White Blood Count 9.3 K/mcL (4.3-11.1)
[2022-01-19 14:31] LABS: Albumin 3.7 g/dL (3.5-5.7); Albumin/Globulin Ratio 1.3 (1.1-2.2); Bilirubin,Total 0.5 mg/dL (0.3-1.0); Globulin 2.8 g/dL (2.4-3.5); Magnesium 1.9 mg/dL (1.6-2.6); Potassium 3.5 mEq/L (3.5-5.1); Total Protein 6.5 g/dL (6.4-8.9)
[2022-01-19] MEDS ORDERED: Morphine Sulfate 2 MG/ML SYRINGE IVP ONE (16:15)
[2022-01-19] MEDS ORDERED: Albumin 25% 25gram/100mL 25 GM/100 ML IV.SOLN IVPB ONE (16:17)
[2022-01-19 17:40] LABS: Adenovirus Not Detected (Not Detect); Bordetella Pertussis Not Detected (Not Detect); Chlamydophila pneumoniae Not Detected (Not Detect); Coronavirus 229E Not Detected (Not Detect); Coronavirus HKU1 Not Detected (Not Detect); Coronavirus NL63 Not Detected (Not Detect); Coronavirus OC43 Not Detected (Not Detect); Human Metapneumovirus Not Detected (Not Detect); Human Rhinovirus/Enterovirus Not Detected (Not Detect); Influenza A Subtype 2009 H1 Not Detected (Not Detect); Influenza B Not Detected (Not Detect); Mycoplasma pneumoniae Not Detected (Not Detect); Parainfluenza Virus 1 Not Detected (Not Detect); Parainfluenza Virus 2 Not Detected (Not Detect); Parainfluenza Virus 3 Not Detected (Not Detect); Parainfluenza Virus 4 Not Detected (Not Detect); Respiratory Syncytial Virus Not Detected (Not Detect); SARS-CoV-2 Not Detected (Not Detect)
[2022-01-19 18:22] LABS: Bilirubin,Urine Negative (Negative); Blood,Urine Negative (Negative); Clarity,Urine Clear (Clear); Color,Urine Yellow (Yellow); Glucose,Urine (UA) Normal (Normal); Hyaline Casts,Urine Few per lpf (None Seen); Ketones,Urine Negative (Negative); Leukocyte Esterase,Urine Trace (Negative); Mucus,Urine Few per lpf (None-Few); Nitrite,Urine Negative (Negative); PH,Urine 6.5 pH Units (5.0-8.0); Protein,Urine Trace mg/dL (Neg-Trace); RBC,Urine 0-3 per hpf (0-3); Specific Gravity,Urine 1.026 (1.010-1.025); Squamous Epithelial Cell,Urine Few per hpf (None-Few); Urobilinogen,Urine Normal (Normal); WBC,Urine 0-3 per hpf (0-3)
[2022-01-19] MEDS ORDERED: hydrOXYzine pamoate 25 MG CAPSULE PO ONE (18:41)
[2022-01-19] MEDS ORDERED: *HR* LORazepam 2 MG/ML VIAL IVP ONE (18:51)
[2022-01-19] MEDS ORDERED: Acetaminophen IV 1,000 MG/100 ML BAG IVPB ONE (18:56)
[2022-01-19] MEDS: risperiDONE 0.25 MG TABLET PO SCH (21:42)
[2022-01-20 01:45] LABS: Basophils % 0.3 %; Eosinophils # 0.3 K/mcL (0.0-0.6); Eosinophils % 2.7 %; Hematocrit 31.2 % (37.5-50.1); Hemoglobin 10.1 g/dL (12.9-16.9); Immature Granulocytes % 0.7 % (0-4); Lymphocytes # 0.6 K/mcL (0.6-4.6); Lymphocytes % 5.3 %; Mean Corpuscular HGB Conc 32.4 g/dL (31.6-35.5); Mean Corpuscular Hemoglobin 30.1 pg (28.0-33.3); Mean Corpuscular Volume 92.9 fL (83.0-100.0); Mean Platelet Volume 9.4 fL (9.4-12.4); Monocytes # 0.9 K/mcL (0.0-1.3); Monocytes % 7.5 %; Neutrophils # 9.7 K/mcL (1.6-8.9); Platelet Count 216 K/mcL (140-400); Red Blood Count 3.36 M/mcL (4.19-5.50); Red Cell Distribution Width 13.6 % (11.5-14.5); Segmented Neutrophils % 83.5 %; White Blood Count 11.7 K/mcL (4.3-11.1)
[2022-01-20 02:03] LABS: Albumin 3.6 g/dL (3.5-5.7); Albumin/Globulin Ratio 1.3 (1.1-2.2); Bilirubin,Total 0.6 mg/dL (0.3-1.0); Calcium 9.6 mg/dL (8.6-10.3); Globulin 2.8 g/dL (2.4-3.5); Magnesium 1.9 mg/dL (1.6-2.6); Potassium 3.6 mEq/L (3.5-5.1); Total Protein 6.4 g/dL (6.4-8.9)
[2022-01-20] MEDS: Albuterol 2.5 MG/3 ML NEBULIZER IH SCH ×5 (04:01→21:39)
[2022-01-20] MEDS ORDERED: Acetaminophen IV 1,000 MG/100 ML BAG IVPB ONE (06:38)
[2022-01-20] MEDS ORDERED: Ondansetron 4 MG/2 ML VIAL IVP ONE (06:38)
[2022-01-20] MEDS: Thiamine (B-1) 100 MG TABLET PO SCH (08:09)
[2022-01-20] MEDS: Vitamin B Complex/Vit C/Vit E 1 EACH TABLET PO SCH (08:09)
[2022-01-20] MEDS: levoFLOXacin 750 MG TABLET PO SCH (08:09)
[2022-01-20] MEDS: Folic Acid 1 MG TABLET PO SCH (08:09)
[2022-01-20] MEDS: Aspirin Enteric Coated 81 MG Tablet PO SCH (08:10)
[2022-01-20] MEDS: Sennosides/Docusate Sodium TABLET PO SCH ×2 (08:10→20:13)
[2022-01-20] MEDS: Gabapentin 100 MG CAPSULE PO SCH ×3 (08:41→20:17)
[2022-01-20] MEDS: polyethylene glycoL 3350 17 GM POWD.PACK PO SCH (10:02)
[2022-01-20] MEDS: Budesonide/Formoterol 160/4.5 1 PUFF INH IH SCH ×2 (11:03→21:40)
[2022-01-20] MEDS: Tiotropium 10 INH DOSE IH SCH (11:03)
[2022-01-20] MEDS: Acetaminophen 325 MG TABLET PO PRN (15:56)
[2022-01-20] MEDS ORDERED: E-Z-PAQUE (BARIUM SULF) SUSP 1 BOTTLE PO ONE (16:22)
[2022-01-20] MEDS ORDERED: Ibuprofen 200 MG TABLET PO PRN (16:25)
[2022-01-20] MEDS: E-Z-HD (BARIUM SULF) SUSPENSION PO ONE (16:31)
[2022-01-20] MEDS: risperiDONE 0.25 MG TABLET PO SCH (20:15)
[2022-01-20] MEDS: traZODone 50 MG TABLET PO PRN (20:19)
[2022-01-21] MEDS: Albuterol 2.5 MG/3 ML NEBULIZER IH SCH ×4 (04:17→22:13)
[2022-01-21] MEDS: polyethylene glycoL 3350 17 GM POWD.PACK PO SCH (08:35)
[2022-01-21] MEDS: Thiamine (B-1) 100 MG TABLET PO SCH (08:35)
[2022-01-21] MEDS: levoFLOXacin 750 MG TABLET PO SCH (08:35)
[2022-01-21] MEDS: Vitamin B Complex/Vit C/Vit E 1 EACH TABLET PO SCH (08:35)
[2022-01-21] MEDS: Sennosides/Docusate Sodium TABLET PO SCH ×2 (08:35→21:11)
[2022-01-21] MEDS: Gabapentin 100 MG CAPSULE PO SCH ×3 (08:35→21:11)
[2022-01-21] MEDS: Folic Acid 1 MG TABLET PO SCH (08:35)
[2022-01-21] MEDS: Aspirin Enteric Coated 81 MG Tablet PO SCH (08:35)
[2022-01-21] MEDS: Tiotropium 10 INH DOSE IH SCH (09:23)
[2022-01-21] MEDS: Budesonide/Formoterol 160/4.5 1 PUFF INH IH SCH ×2 (09:23→22:13)
[2022-01-21 09:46] LABS: Hematocrit 38.1 % (37.5-50.1); Mean Corpuscular HGB Conc 31.5 g/dL (31.6-35.5); Mean Corpuscular Hemoglobin 30.5 pg (28.0-33.3); Mean Corpuscular Volume 96.7 fL (83.0-100.0); Mean Platelet Volume 9.4 fL (9.4-12.4); Platelet Count 206 K/mcL (140-400); Red Blood Count 3.94 M/mcL (4.19-5.50); Red Cell Distribution Width 13.7 % (11.5-14.5); White Blood Count 11.3 K/mcL (4.3-11.1)
[2022-01-21 10:40] LABS: Calcium 9.7 mg/dL (8.6-10.3); Potassium 4.2 mEq/L (3.5-5.1)
[2022-01-21] MEDS ORDERED: Morphine Sulfate 2 MG/ML SYRINGE IVP ONE (10:51)
[2022-01-21] MEDS: Acetaminophen 325 MG TABLET PO PRN (11:34)
[2022-01-21 14:31] LABS: Total Volume 24 Hour,Urine 1.33 Liters (0.80-1.80)
[2022-01-21 15:03] LABS: Sodium, Urine 60.9 mEq/L
[2022-01-21] MEDS: risperiDONE 0.25 MG TABLET PO SCH (21:10)
[2022-01-22] MEDS: Albuterol 2.5 MG/3 ML NEBULIZER IH SCH ×3 (04:20→15:49)
[2022-01-22] MEDS: Gabapentin 100 MG CAPSULE PO SCH ×2 (08:20→15:37)
[2022-01-22] MEDS: Thiamine (B-1) 100 MG TABLET PO SCH (08:20)
[2022-01-22] MEDS: Aspirin Enteric Coated 81 MG Tablet PO SCH (08:21)
[2022-01-22] MEDS: levoFLOXacin 750 MG TABLET PO SCH (08:21)
[2022-01-22] MEDS: Sennosides/Docusate Sodium TABLET PO SCH (08:21)
[2022-01-22] MEDS: Vitamin B Complex/Vit C/Vit E 1 EACH TABLET PO SCH (08:21)
[2022-01-22] MEDS: polyethylene glycoL 3350 17 GM POWD.PACK PO SCH (08:21)
[2022-01-22] MEDS: Folic Acid 1 MG TABLET PO SCH (08:21)
[2022-01-22] MEDS: Tiotropium 10 INH DOSE IH SCH (10:35)
[2022-01-22] MEDS: Budesonide/Formoterol 160/4.5 1 PUFF INH IH SCH (10:35)
[2022-01-22 15:51] VITALS: BP 131/71; TEMP 97.5
[2022-01-22 16:43] LABS: Influenza A PCR Negative (Negative); Influenza B PCR Negative (Negative); Resp. Syncytial Virus PCR Negative (Negative)
[2022-01-22 16:45] LABS: SARS-CoV-2 by PCR (In House) Negative (Negative)
[2022-01-22 17:23] VITALS: PULSE 86; O2SAT 93
== END 2022-01-22 17:26 | DRG 163 ==
LOC: 2NENU → SUATTDRO 01-11 11:34 → 2NNU 01-14 11:55
PROVIDERS: ADMIT Internal Medicine; ATTEND Internal Medicine